=== PATIENT | female | born 1975 | race Caucasian/White ===

== ENCOUNTER 2016-05-12 05:19 | Outpatient (CLI) | payer BC ==
[~2016-05-12 05:19] MED LIST: B12 INJ.,1000 MCG/M IM; HYDROCORTISONE25 MG PR; LEVOFLOXACIN 5500 M1 PO; LEVOTHYROXIN0.112 M1 PO; LEVOTHYROXINE0.1 MG PO; PANTOPRAZOLE SO40 M1 PO; PROTONIX 40MG T40 MG PO
== END 2016-05-12 08:30 | disposition home or self-care (01) ==
LOC: COP 05:19
DX: Z45.2 Encounter for adjustment and management of vascular access device (principal)